=== PATIENT | female | born 1990 | race Asian ===

== ENCOUNTER 2020-09-04 12:50 | Inpatient (IN) | payer OTHER ==
[~2020-09-04] VITALS: Ht 152.4 cm; Wt 68.6 kg
[2020-09-04] MEDS ORDERED: ONDANSETRON 2MG/ML, 2ML IVPush PRN ×2 (13:00→22:30)
[2020-09-04] MEDS ORDERED: OXYTOCIN 30U/ 0.9% NaCL 500ML 500 ML IV ONE (13:00)
[2020-09-04] MEDS ORDERED: METOCLOPRAMIDE 5 MG/ML, 2ML IVPush PRN (13:00)
[2020-09-04] MEDS ORDERED: D5%-LACTATED RINGERS 1,000 ML IV SCH (13:00)
[2020-09-04] MEDS ORDERED: OXYTOCIN 30U/ 0.9% NaCL 500ML 500 ML IV PRN (13:00)
[2020-09-04] MEDS ORDERED: TERBUTALINE 1 MG/ML, 1ML SQ PRN (13:00)
[2020-09-04] MEDS ORDERED: SODIUM CITRATE/CITRIC ACID 30 ML UDC PO PRN (13:00)
[2020-09-04] MEDS ORDERED: FENTANYL PF 100 MCG/2ML IV PRN (13:00)
[2020-09-04] MEDS ORDERED: FENTANYL PF 100 MCG/2ML IVPush PRN (13:00)
[2020-09-04] MEDS ORDERED: TERBUTALINE 1 MG/ML, 1ML IVPush PRN (13:00)
[2020-09-04] MEDS: LACTATED RINGERS 1,000 ML IV SCH (13:15)
[2020-09-04 13:22] LABS: BASOPHILS % (AUTO) 0 % (0-1); EOSINOPHILS % (AUTO) 0 % (1-7); LYMPHOCYTES % (AUTO) 14 % (22-44); MEAN CORPUSCULAR HEMOGLOBIN 27.5 pg (27.0-34.8); MEAN CORPUSCULAR HGB CONC 32.7 g/dL (32.4-35.8); MONOCYTES % (AUTO) 6 % (2-9); NEUTROPHILS % (AUTO) 80 % (42-75); PLATELET COUNT 154 x10^3/uL (130-400); RED BLOOD COUNT 4.51 x10^6/uL (3.82-5.3); RED CELL DISTRIBUTION WIDTH 15.4 % (9.6-15.2)
[2020-09-04] MEDS ORDERED: LIDOCAINE 1%, 20ML ONE (13:27)
[2020-09-04] MEDS ORDERED: OXYTOCIN 30U/ 0.9% NaCL 500ML 500 ML ONE (13:27)
[2020-09-04] MEDS ORDERED: NEWBORN KIT ONE (13:27)
[2020-09-04 14:34] LABS: MD MORPH REVIEW ONLY
[2020-09-04 14:35] LABS: <PLATELET ESTIMATE> ADEQUATE; <RBC MORPHOLOGY> NORMAL; LARGE PLATELETS 1+
[2020-09-04] MEDS ORDERED: BUPIVACAINE 0.25% ONE (21:54)
[2020-09-04] MEDS ORDERED: FENTANYL/BUPIV./NS/PF 250 ML EPIDCONT ONE (21:54)
[2020-09-04] MEDS ORDERED: DIPHENHYDRAMINE 50 MG/ML, 1ML IVPush PRN (22:30)
[2020-09-04] MEDS ORDERED: LACTATED RINGERS 1,000 ML IV SCH (22:30)
[2020-09-04] MEDS ORDERED: EPHEDRINE 50 MG/ML, 1ML IVPush PRN (22:30)
[2020-09-04] MEDS ORDERED: FENTANYL/BUPIV./NS/PF 250 ML EPIDCONT SCH (22:30)
[2020-09-04] MEDS ORDERED: NALOXONE 0.4 MG/ML, 1ML IVPush PRN (22:30)
[2020-09-04] MEDS ORDERED: LACTATED RINGERS 1,000 ML IVBOLUS PRN (22:30)
[2020-09-05] MEDS ORDERED: AMPICILLIN 2 GM in SODIUM CHLORIDE 0.9% 100 ML IV SCH (06:30)
[2020-09-05] MEDS ORDERED: PREN1TAB60 PO (07:21)
[2020-09-05] MEDS: LACTATED RINGERS 1,000 ML IV SCH ×3 (09:38→17:00)
[2020-09-05] MEDS: AMPICILLIN 1 GM in SODIUM CHLORIDE 0.9% 100 ML IV SCH ×2 (10:31→14:29)
[2020-09-05] MEDS ORDERED: AMPICILLIN 1 GM in SODIUM CHLORIDE 0.9% 100 ML IV SCH (14:30)
[2020-09-05] MEDS ORDERED: SODIUM CITRATE/CITRIC ACID 15 ML UDC ONE (15:23)
[2020-09-05] MEDS ORDERED: SODIUM CITRATE/CITRIC ACID 30 ML UDC PO ONE ×2 (16:00→17:30)
[2020-09-05] MEDS ORDERED: AZITHROMYCIN 500 MG in SODIUM CHLORIDE 0.9% 250 ML IV ONE (16:00)
[2020-09-05] MEDS ORDERED: LACTATED RINGERS 1,000 ML IVBOLUS ONE (16:00)
[2020-09-05] MEDS ORDERED: METOCLOPRAMIDE 5 MG/ML, 2ML IV ONE (16:00)
[2020-09-05] MEDS ORDERED: PROMETHAZINE 25 MG/ML, 1ML IV PRN (16:30)
[2020-09-05] MEDS ORDERED: OXYcodone 5 MG/5 ML ORAL.SOL UDC PO PRN (16:30)
[2020-09-05] MEDS ORDERED: HYDROmorphone 2 MG/ML, 1ML IVPush PRN (16:30)
[2020-09-05] MEDS ORDERED: HYDROcodone/APAP 7.5-325MG/15ML UDC PO PRN (16:30)
[2020-09-05] MEDS ORDERED: FENTANYL PF 100 MCG/2ML IV PRN (16:30)
[2020-09-05] MEDS ORDERED: hydrALAzine 20 MG/ML, 1ML IV PRN (16:30)
[2020-09-05] MEDS ORDERED: MIDAZOLAM 1 MG/ML, 2ML IV PRN (16:30)
[2020-09-05] MEDS ORDERED: METOPROLOL 1 MG/ML, 5ML IV PRN (16:30)
[2020-09-05] MEDS ORDERED: ONDANSETRON 2MG/ML, 2ML IVPush PRN ×2 (16:30→23:00)
[2020-09-05] MEDS ORDERED: LABETALOL 5MG/ML, 20ML IV PRN (16:30)
[2020-09-05] MEDS ORDERED: ALBUTEROL SULFATE 2.5 MG/3 ML NPPB PRN (16:30)
[2020-09-05] MEDS ORDERED: MEPERIDINE/PF 25MG/0.5ML IVPush PRN (16:30)
[2020-09-05] MEDS ORDERED: EPHEDRINE 50 MG/ML, 1ML ONE (16:42)
[2020-09-05] MEDS ORDERED: CEFAZOLIN 1,000 MG ONE (16:42)
[2020-09-05] MEDS ORDERED: SUCCINYLCHOLINE 20 MG/ML, 10ML ONE (16:42)
[2020-09-05] MEDS ORDERED: DEXAMETHASONE 4 MG/ML, 1ML ONE (16:42)
[2020-09-05] MEDS ORDERED: PHENYLEPHRINE 10 MG/ML ONE (16:42)
[2020-09-05] MEDS ORDERED: ONDANSETRON 2MG/ML, 2ML ONE (16:42)
[2020-09-05] MEDS ORDERED: KETOROLAC 30 MG/1 ML ONE (16:42)
[2020-09-05] MEDS ORDERED: OXYTOCIN 10 UNITS/ML, 1ML ONE (16:42)
[2020-09-05] MEDS ORDERED: PROPOFOL 10 MG/ML, 20ML ONE (16:42)
[2020-09-05] MEDS ORDERED: FENTANYL PF 100 MCG/2ML ONE ×2 (16:43→16:45)
[2020-09-05] MEDS ORDERED: MISOPROSTOL 200 MCG TABLET PR PRN (17:00)
[2020-09-05] MEDS ORDERED: CARBOPROST TROMETHAMINE 250 MCG/ML, 1ML IM PRN (17:00)
[2020-09-05] MEDS ORDERED: ONDANSETRON 2MG/ML, 2ML IV PRN (17:00)
[2020-09-05] MEDS ORDERED: SIMETHICONE 80 MG CHEW TAB PO PRN (17:00)
[2020-09-05] MEDS ORDERED: GENTAMICIN PER PHARMACY MC PRN (17:00)
[2020-09-05] MEDS ORDERED: IBUPROFEN 800 MG TABLET PO PRN (17:00)
[2020-09-05] MEDS ORDERED: OXYcodone/APAP 5/325MG TABLET PO PRN ×2 (17:00→23:00)
[2020-09-05] MEDS ORDERED: ACETAMINOPHEN 325 MG TABLET PO PRN ×2 (17:00)
[2020-09-05] MEDS ORDERED: PHARMACOKINETIC CONSULTATION MC ONE (17:30)
[2020-09-05] MEDS ORDERED: PHARMACOKINETIC MONITORING MC PRN (17:30)
[2020-09-05] MEDS ORDERED: morphine SULFATE/PF 0.5 MG/ML, 10ML ONE (17:31)
[2020-09-05] MEDS ORDERED: GENTAMICIN IV SCH (18:00)
[2020-09-05] MEDS ORDERED: SODIUM CHLORIDE 0.9% IV SCH (18:00)
[2020-09-05] MEDS: OXYTOCIN 30U/ 0.9% NaCL 500ML 500 ML IV SCH (18:45)
[2020-09-05 20:15] VITALS: BP 124/81
[2020-09-05] MEDS ORDERED: DIPHENHYDRAMINE 50 MG/ML, 1ML IV PRN (23:00)
[2020-09-05] MEDS ORDERED: FENTANYL PF 100 MCG/2ML IVPush PRN (23:00)
[2020-09-05] MEDS ORDERED: EPHEDRINE 50 MG/ML, 1ML IVPush PRN (23:00)
[2020-09-05] MEDS ORDERED: NALOXONE 0.4 MG/ML, 1ML IV PRN ×3 (23:00)
[2020-09-06 00:25] VITALS: BP 116/65
[2020-09-06] MEDS: LACTATED RINGERS 1,000 ML IV SCH ×5 (01:00→17:00)
[2020-09-06 01:30] LABS: BASOPHILS % (AUTO) 0 % (0-1); EOSINOPHILS % (AUTO) 0 % (1-7); LYMPHOCYTES % (AUTO) 5 % (22-44); MD NO; MEAN CORPUSCULAR HEMOGLOBIN 27.3 pg (27.0-34.8); MEAN CORPUSCULAR HGB CONC 32.8 g/dL (32.4-35.8); MONOCYTES % (AUTO) 5 % (2-9); NEUTROPHILS % (AUTO) 89 % (42-75); PLATELET COUNT 140 x10^3/uL (130-400); RED BLOOD COUNT 4.37 x10^6/uL (3.82-5.3)
[2020-09-06] MEDS: OXYTOCIN 30U/ 0.9% NaCL 500ML 500 ML IV SCH ×2 (03:00→13:00)
[2020-09-06 04:10] VITALS: BP 107/70
[2020-09-06] MEDS: IBUPROFEN 600 MG TABLET PO PRN ×3 (04:58→17:56)
[2020-09-06] MEDS: OXYcodone/APAP 5/325MG TABLET PO PRN ×5 (04:59→20:44)
[2020-09-06 07:00] VITALS: BP 94/60
[2020-09-06] MEDS: DOCUSATE 100 MG CAPSULE PO PRN ×2 (08:24→20:42)
[2020-09-06] MEDS: PRENATAL VIT/IRON/FA 1 EACH TABLET PO SCH (09:00)
[2020-09-06 12:20] VITALS: BP 100/67
[2020-09-06 16:00] VITALS: BP 96/59
[2020-09-06 20:15] VITALS: BP 96/63
[2020-09-07] MEDS: IBUPROFEN 600 MG TABLET PO PRN ×3 (01:20→13:56)
[2020-09-07] MEDS: OXYcodone/APAP 5/325MG TABLET PO PRN ×3 (01:21→13:56)
[2020-09-07 07:45] VITALS: BP 97/65
[2020-09-07] MEDS: DOCUSATE 100 MG CAPSULE PO PRN (07:55)
[2020-09-07] MEDS: PRENATAL VIT/IRON/FA 1 EACH TABLET PO SCH (08:33)
[2020-09-07] MEDS ORDERED: DOCU-131 PO (08:37)
[2020-09-07] MEDS ORDERED: ACET325T26 PO (08:37)
[2020-09-07] MEDS ORDERED: IBUP-1222 PO (08:37)
[2020-09-07] MEDS ORDERED: OXYC1TAB14 PO (08:37)
[2020-09-07] MEDS ORDERED: SIME80TA16 PO (08:37)
== END 2020-09-07 15:25 | disposition home or self-care (01) | DRG 788 ==
LOC: LDIP 12:50 → 2NW 09-05 19:43
PROVIDERS: ADMIT Obstetrics & Gynecology; ATTEND Obstetrics & Gynecology
PROC: 10D00Z1 Extraction of Products of Conception, Low, Open Approach (ICD-10-PCS; principal; 2020-09-05)
DX: O69.81X0 Labor and delivery complicated by cord around neck, without compression, not applicable or unspecified (principal); O33.9 Maternal care for disproportion, unspecified; O62.1 Secondary uterine inertia; O76 Abnormality in fetal heart rate and rhythm complicating labor and delivery; Z20.822 Contact with and (suspected) exposure to COVID-19; Z37.0 Single live birth; Z3A.39 39 weeks gestation of pregnancy
CPT/HCPCS: 36415; J7121; 85025; 86592; 86850; 86900; 87635; G0378; J0290; J0456; J0690; J1100; J1885; J2274; J2405; J2704; J3010; J0330; J2370; J2590; J2765; J7050; J7120